=== PATIENT | female | born 1970 | race Caucasian/White ===

== ENCOUNTER → 2017-04-25 | Outpatient (CLI) | payer OTHER ==
[~2017-04-25] MED LIST: BACTRIM DS 8001 TA1 PO; DIFLUCAN150 MG PO; FIORICET 50-301 EACH PO; ZOFRAN4 MG PO
== END | disposition home or self-care (01) ==
LOC: US 16:46
DX: N92.0 Excessive and frequent menstruation with regular cycle (principal)

== ENCOUNTER 2018-03-29 17:18 | Emergency (ER) | payer SELFPAY ==
[~2018-03-29] VITALS: Ht 167.6 cm; Wt 65.8 kg
[2018-03-29] MEDS ORDERED: FLONASE ALLERG9.9 ML NS (19:31)
[2018-03-29] MEDS ORDERED: CETIRIZINE10 MG PO (19:31)
[2018-03-29] MEDS ORDERED: AMOXICILLIN500 M2 PO (19:31)
== END 2018-03-29 19:50 | disposition home or self-care (01) ==
LOC: ED 17:18
DX: F41.9 Anxiety disorder, unspecified (principal); J01.90 Acute sinusitis, unspecified; R51 Headache; Z88.6 Allergy status to analgesic agent

== ENCOUNTER 2020-08-20 14:11 | Observation (INO) | payer SELFPAY ==
[~2020-08-20] VITALS: Ht 167.6 cm; Wt 76.8 kg
[~2020-08-20 14:11] MED LIST changes: +AMOXICILLIN500 M2 PO; +CETIRIZINE10 MG PO; +FLONASE ALLERG9.9 ML NS
[2020-08-20 14:23] VITALS: BP 174/91
[2020-08-20 14:41] LABS: BASO % 0.3 % (0.0-1.0); EOS # 0.1 10*3/uL (0.0-0.4); HEMATOCRIT 29.3 % (37.0-47.0); LYMPH # 1.5 10*3/uL (1.3-4.4); LYMPH % 20.9 % (27.0-41.0); MEAN CELL VOLUME 75.3 fl (81.0-99.0); MEAN CORPUSCULAR HGB 22.1 pg (27.0-31.0); MEAN CORPUSCULAR HGB CONC 29.4 g/dl (33.0-37.0); MEAN PLATELET VOLUME 9.1 fl (9.6-12.3); MONO # 0.7 10*3/uL (0.1-1.0); MONO % 9.7 % (3.0-9.0); NEUT % 67.6 % (47.0-73.0); PLATELET COUNT AUTOMATED 257 10*3/uL (130-400); RED BLOOD COUNT 3.89 10*6/uL (4.10-5.10); RED CELL DISTRI WIDTH 17.5 % (0-14.5); WHITE BLOOD COUNT 7.3 10*3/uL (4.8-10.8)
[2020-08-20 14:46] VITALS: BP 169/84
[2020-08-20 14:52] LABS: ACT PARTIAL THROMBO TIME 25.6 SECONDS (20.0-32.1); INTERNATIONAL NORM RATIO 0.9 (2.0-3.5)
[2020-08-20 15:04] LABS: ALBUMIN 3.6 gm/dl (3.1-4.5); ALKALINE PHOSPHATASE 89 U/L (45-117); BUN 15 mg/dl (7-24); CHLORIDE 105 mmol/L (98-107); CREATININE 1.16 mg/dL (0.55-1.02); LIPASE 110 U/L (73-393); POTASSIUM 3.7 mmol/L (3.5-5.1); SGOT/AST 11 IU/L (3-35); SGPT/ALT 18 U/L (12-78); SODIUM 136 mmol/L (136-145); TOTAL PROTEIN 7.1 gm/dL (6.4-8.2)
[2020-08-20 15:05] LABS: TROPONIN I < 0.015 ng/ml (<0.045)
[2020-08-20 15:31] VITALS: BP 173/91
[2020-08-20 16:35] VITALS: BP 182/101
[2020-08-20 17:25] VITALS: BP 158/96
[2020-08-20] MEDS ORDERED: IBU-200200 MG PO (17:50)
[2020-08-20] MEDS ORDERED: VALIUM10 MG PO (17:51)
[2020-08-20 20:00] VITALS: BP 127/77
[2020-08-21] VITALS: BP 139/78
[2020-08-21 08:00] VITALS: BP 150/82
[2020-08-21] MEDS ORDERED: NORVASC2.5 MG PO (08:21)
[2020-08-21 09:52] LABS: FERRITIN 5.2 ng/mL (10.0-291.0)
[2020-08-21 12:00] VITALS: BP 132/74
== END 2020-08-21 15:54 | disposition home or self-care (01) ==
LOC: ED 14:11 → EDHOLD 16:08 → 4E 16:15
PROVIDERS: Nurse Practitioner Family; ADMIT Internal Medicine; ATTEND Internal Medicine
DX: R07.89 Other chest pain (principal); N18.30 Chronic kidney disease, stage 3 unspecified; D64.9 Anemia, unspecified; F17.210 Nicotine dependence, cigarettes, uncomplicated